=== PATIENT | female | born 1965 | race Caucasian/White ===

== ENCOUNTER 2021-07-10 11:52 | Inpatient (IN) | payer OTHER ==
[~2021-07-10] VITALS: Ht 149.9 cm; Wt 83.9 kg
[~2021-07-10 11:52] MED LIST: BACTROBAN NASAL1 G1; HYDROCHLOROTHIA25 MG PO; NAPROSYN500 MG PO; SYNTHROID100 MCG PO
[2021-07-10 12:21] LABS: HEMOGLOBIN 12.8 gm/dl (12.3-15.3); RED BLOOD COUNT 3.97 M/UL (4.00-5.10); WHITE BLOOD COUNT 5.6 K/UL (4.5-11.0)
[2021-07-10] MEDS ORDERED: MELOXICAM15 MG PO (14:26)
[2021-07-10] MEDS ORDERED: LEVOTHYROXINE125 MCG PO (14:27)
[2021-07-10] MEDS ORDERED: VITAMIN D21250 MCG PO (14:27)
[2021-07-10] MEDS ORDERED: LISINOPRIL40 MG PO (14:27)
[2021-07-10] MEDS ORDERED: ALBUTEROL2.5 MG/3 M INH (14:28)
[2021-07-10] MEDS ORDERED: PROAIR HFA8.5 GM INH (14:28)
[2021-07-11 06:31] LABS: HEMOGLOBIN 12.2 gm/dl (12.3-15.3); RED BLOOD COUNT 3.83 M/UL (4.00-5.10); WHITE BLOOD COUNT 5.2 K/UL (4.5-11.0)
[2021-07-12 04:00] LABS: HEMOGLOBIN 12.8 gm/dl (12.3-15.3); RED BLOOD COUNT 3.95 M/UL (4.00-5.10); WHITE BLOOD COUNT 7.3 K/UL (4.5-11.0)
[2021-07-12 04:17] LABS: BUN/CREATININE RATIO 19 (0-10)
[2021-07-12] MEDS ORDERED: ASPIRIN EC81 MG PO (22:32)
[2021-07-12] MEDS ORDERED: ATORVASTATIN CA20 MG PO (22:32)
[2021-07-12] MEDS ORDERED: DECADRON IM/I4 MG/ML IV (22:32)
== END 2021-07-13 02:20 | disposition short-term general hospital (02) | DRG 70 ==
LOC: ER1 11:52 → CDU 14:07 → M/S 14:07
PROVIDERS: Nurse Practitioner; Physician Assistant; ADMIT Internal Medicine
PROC: B24BZZ4 Ultrasonography of Heart with Aorta, Transesophageal (ICD-10-PCS; principal; 2021-07-11)
DX: G93.89 Other specified disorders of brain (principal); G93.6 Cerebral edema; G51.0 Bell's palsy; Z20.822 Contact with and (suspected) exposure to COVID-19; R20.2 Paresthesia of skin; R53.1 Weakness; E03.9 Hypothyroidism, unspecified; I10 Essential (primary) hypertension; F15.10 Other stimulant abuse, uncomplicated; R53.81 Other malaise; F17.210 Nicotine dependence, cigarettes, uncomplicated; I07.1 Rheumatic tricuspid insufficiency; Z79.82 Long term (current) use of aspirin; Z91.14 Patient's other noncompliance with medication regimen
CPT/HCPCS: ECHO; 36415; 70450; 70553; 80048; 80053; 80061; 80307; 81001; 82550; 82553; 84439; 84443; 84484; 85025; 85027; 87086; 93005; 93306; 93880; 96372; 96374; 96376; 99285; A9577; G0378; J1100; J1650; J7030; U0002

== ENCOUNTER 2022-04-07 15:11 | Emergency (ER) | payer OTHER ==
[~2022-04-07 15:11] MED LIST changes: +ALBUTEROL2.5 MG/3 M INH; +ASPIRIN EC81 MG PO; +ATORVASTATIN CA20 MG PO; +DECADRON IM/I4 MG/ML IV; +LEVOTHYROXINE125 MCG PO; +LISINOPRIL40 MG PO; +MELOXICAM15 MG PO; +PROAIR HFA8.5 GM INH; +VITAMIN D21250 MCG PO
[2022-04-07 16:21] LABS: HEMOGLOBIN 13.6 gm/dl (12.3-15.3); RED BLOOD COUNT 4.15 M/UL (4.00-5.10); WHITE BLOOD COUNT 5.6 K/UL (4.5-11.0)
== END 2022-04-07 23:25 | disposition short-term general hospital (02) ==
LOC: ER1 15:11
PROVIDERS: Physician Assistant Medical
DX: G93.9 Disorder of brain, unspecified (principal); E03.9 Hypothyroidism, unspecified; I10 Essential (primary) hypertension; J45.909 Unspecified asthma, uncomplicated; F17.210 Nicotine dependence, cigarettes, uncomplicated; Z88.7 Allergy status to serum and vaccine
CPT/HCPCS: 70450; 71045; 80053; 81001; 82550; 82553; 83880; 84439; 84443; 84484; 85025; 93005; 99285

== ENCOUNTER 2022-06-11 04:26 | Emergency (ER) | payer OTHER ==
[2022-06-11] MEDS ORDERED: CLINDAMYCIN HC300 MG PO (05:16)
[2022-06-11] MEDS ORDERED: IBUPROFEN600 MG PO (05:16)
== END 2022-06-11 04:30 | disposition home or self-care (01) ==
LOC: ER1 04:26
DX: K02.9 Dental caries, unspecified (principal); K04.7 Periapical abscess without sinus; E03.9 Hypothyroidism, unspecified; I10 Essential (primary) hypertension; J45.909 Unspecified asthma, uncomplicated; Z88.7 Allergy status to serum and vaccine
CPT/HCPCS: 96372; 99283; J1885